=== PATIENT | male | born 1960 | race African-American/Black ===

== ENCOUNTER 2024-12-25 07:32 | Outpatient (CLI) | payer OTHER | END 2024-12-25 07:33 | disposition home or self-care (01) | LOC: CSHCP 07:32 | PROVIDERS: ATTEND Internal Medicine | DX: R06.09 Other forms of dyspnea (principal); F17.210 Nicotine dependence, cigarettes, uncomplicated | CPT/HCPCS: 71271; 94060; 94664; 94726; 94729; 94760 ==